=== PATIENT | female | born 1970 | race Caucasian/White ===

== ENCOUNTER 2016-07-05 03:54 | Emergency (ER) | payer OTHER ==
[~2016-07-05] VITALS: Ht 160 cm; Wt 64.9 kg
[~2016-07-05 03:54] MED LIST: FLEXERIL10 MG PO; FLEXERIL5 MG PO; IBUPROFEN600 MG PO; LISINOPRIL; METFORMIN; MOBIC7.5 MG PO; NAPROSYN500 MG PO; NOHOMEMEDS; TYLENOL WITH C1 EACH PO; VALIUM5 MG PO
[2016-07-05 03:57] VITALS: BP 149/79
[2016-07-05] MEDS ORDERED: VALIUM2 MG PO (04:54)
== END 2016-07-05 05:23 | disposition home or self-care (01) ==
LOC: EME 03:54
DX: M43.6 Torticollis (principal); F17.200 Nicotine dependence, unspecified, uncomplicated
CPT/HCPCS: 99281; 99283